=== PATIENT | female | born 1985 | race Caucasian/White ===

== ENCOUNTER 2017-10-07 13:01 | Emergency (ER) | payer OTHER ==
[~2017-10-07 13:01] MED LIST: SE-NTAB3 PO; TOPR25TA PO
--- NOTE | 2017-10-07 13:52 | PD ---
HPI Chief Complaint Decreased movement Date Seen: Oct 07, 2017 Time Seen: 13:49 Travel History International Travel<30 Days: No Contact w/Intl Traveler<30Days: No Known Affected Area: No History of Present Illness HPI 32-year-old at 35 weeks and 3 days complains of decreased movement this morning. Patient states that she has had an uncomplicated . At 32 weeks she measured size less than dates on physical exam and an ultrasound was ordered that noted normal growth. Patient sees Radha Pavon for her care but would like an lokie driver to take over her care if possible. She is a history of rapid labors in the past and does not believe that the birthing center in [place] is close enough for safety. Weeks Gestation: 35 Para: 3 : 5 History Past Medical History Medical History: Denies Significant Hx Obstetric History Obstetric History Spontaneous vaginal delivery 3 Past Surgical History Surgical History: No Previous Surgery Family History Family History: Negative Social History Alcohol Use: No Tobacco Use: No Substance Abuse: No Allergies-Medications (Allergen,Severity, Reaction): Coded Allergies: No Known Allergies (Unverified , 10/07/17) Home Meds Reported Medications Metoprolol Succinate ER 24 HR (Toprol XL) 25 Mg Tab, 12.5 MG PO DAILY, #30 TAB 0 Refills 08/31/17 Vit W/ Docusate-Fe Fu (Se-Deangelo 19 29-1 mg) 29 Mg Iron-1 Mg-25 Mg Tab, 1 TAB PO DAILY for Nutritional Supplement, TAB 0 Refills 08/31/17 Review of Systems Except as stated in HPI: all other systems reviewed are Neg Physical Exam Narrative GENERAL: Well-nourished, well-developed patient. SKIN: Warm and dry. HEAD: Normocephalic and atraumatic. EYES: No scleral icterus. No injection or drainage. ENT: No nasal drainage noted. Mucous membranes pink. Airway patent. NECK: Supple, trachea midline. No JVD. CARDIOVASCULAR: Regular rate and rhythm without murmurs, gallops, or rubs. RESPIRATORY: Breath sounds equal bilaterally. No accessory muscle use. ABDOMEN/GI: Abdomen soft, non-tender, bowel sounds present, no rebound, no guarding Gravid to [-] weeks size Fundal Height: [-] 33 GENITOURINARY: Deferred External Genitalia: intact and normal in appearance BUS glands: [-] Cervix: [-] Dilatation: [-] Effacement: [-] Station: [-] Presentation: [-] Membranes: [intact or ruptured] Uterine Contractions: [-] FHT's: Category: [-] 1 Baseline: [-] 140 Reactive: [-] Moderate Variability: [-] Moderate Decels: [-] Absent EXTREMITIES: No cyanosis or edema. BACK: Nontender without obvious deformity. No CVA tenderness. NEUROLOGICAL: Awake and alert. Motor and sensory grossly within normal limits. Five out of 5 muscle strength in all muscle groups. Normal speech. Data Data Vital Signs Reviewed: Yes [facility] Medical Record Reviewed: Yes Plan 32-year-old at 35 weeks in 3 days with decreased movement. Normal nonstress test is noted Patient was given information for the [place] [facility] Given her history of rapid labors would recommend a closer hospital for delivery Diagnosis Diagnosis: Primary Impression: 35 weeks gestation of Additional Impression: Decreased movement affecting management of in third trimester Disposition: 01 DISCHARGE HOME Tova Barbour MD Oct 07, 2017 13:52
== END 2017-10-07 14:37 | disposition home or self-care (01) ==
LOC: HOBED 13:01
DX: O36.8130 Decreased fetal movements, third trimester, not applicable or unspecified (principal); Z3A.35 35 weeks gestation of pregnancy
CPT/HCPCS: 59025

== ENCOUNTER 2017-10-19 08:39 | Emergency (ER) | payer OTHER ==
[2017-10-19 08:47] VITALS: BP 102/65; PULSE 67
[2017-10-19 08:54] VITALS: RESP 18; TEMP 97.5
--- NOTE | 2017-10-19 09:19 | PD ---
HPI Chief Complaint Possible leakage of fluid Date Seen: Oct 19, 2017 Time Seen: 09:00 Travel History International Travel<30 Days: No Contact w/Intl Traveler<30Days: No History of Present Illness HPI Mrs. Padilla is a 32-year-old at 37/1 weeks gestation presenting to the OB ED today due to concerns about possible leakage of fluids. She states that the leaking started last night around 8:30 PM after she urinated. She said it then stopped and around 4 AM started again. She then put on a panty liner. When she woke up this morning the panty liner was dry only had scant discharge. No vaginal bleeding, no contractions, no dysuria, no chest pain, no shortness of breath, no decreased movement. Weeks Gestation: 37 Para: 3 : 5 History Past Medical History Narrative Medical Anxiety Heart palpitations (arrhythmia) Obstetric History Obstetric History 2010, girl, , term, no complications 2012, boy, , term, no complications 2014, boy, , term, no complications 2015, spontaneous Past Surgical History Narrative Surgical Cleft palate reconstruction Family History Narrative Family History Father-hypertension Mother- healthy Social History Narrative Social History Lives with her and 3 kids Rcvp-[id number] mother Denies alcohol, tobacco, or illicit drug use Allergies-Medications (Allergen,Severity, Reaction): Coded Allergies: No Known Allergies (Unverified , 10/07/17) Home Meds Reported Medications Metoprolol Succinate ER 24 HR (Toprol XL) 25 Mg Tab, 12.5 MG PO DAILY, #30 TAB 0 Refills 08/31/17 Vit W/ Docusate-Fe Fu (Se- 19 29-1 mg) 29 Mg Iron-1 Mg-25 Mg Tab, 1 TAB PO DAILY for Nutritional Supplement, TAB 0 Refills 08/31/17 Review of Systems General / Constitutional: No: Fever, Chills Eyes: No: Blurred Vision HENT: No: Headaches Cardiovascular: No: Chest Pain or Discomfort Respiratory: No: Short of Breath Gastrointestinal: No: Nausea, Vomiting, Abdominal Pain Genitourinary: No: Dysuria Musculoskeletal: No: Weakness Skin: No Rash Neurologic: No: Syncope Psychiatric: Anxiety Physical Exam Vital Signs Date Time Temp Pulse Resp B/P (MAP) Pulse Ox O2 Delivery O2 Flow Rate FiO2 10/19/17 08:54 97.5 18 10/19/17 08:47 67 102/65 (77) Narrative GENERAL: Well-nourished, well-developed patient. SKIN: Warm and dry. HEAD: Normocephalic and atraumatic. EYES: No scleral icterus. No injection or drainage. ENT: No nasal drainage noted. Mucous membranes pink. Airway patent. NECK: Supple, trachea midline. No JVD. CARDIOVASCULAR: Regular rate and rhythm without murmurs, gallops, or rubs. RESPIRATORY: Breath sounds equal bilaterally. No accessory muscle use. BREASTS: Bilateral exam showed no masses , no retractions, no nipple discharge. ABDOMEN/GI: Abdomen soft, non-tender, bowel sounds present, no rebound, no guarding Gravid to [-] weeks size Fundal Height: [-] GENITOURINARY: External Genitalia: intact and normal in appearance Right labia major cyst, nontender, not infected Cervix: posterior Dilatation: 2 Effacement: 50 Station: -2 Presentation: vertex Membranes: intact Uterine Contractions: none FHT's: Category: 1 Baseline: 130s Reactive: yes Variability: moderate Decels: none EXTREMITIES: No cyanosis or edema. BACK: Nontender without obvious deformity. No CVA tenderness. NEUROLOGICAL: Awake and alert. Motor and sensory grossly within normal limits. Five out of 5 muscle strength in all muscle groups. Normal speech. Data Data Vital Signs Reviewed: Yes Orders Orders Vital Signs (Adult) .ON ADMISSION (10/19/17 08:46) ^ Labor Status (10/19/17 08:46) ^ Non Stress Test (10/19/17 08:46) Pamg-1 Test .ONCE (10/19/17 08:46) Group B Strep: Positive MDM Plan 32-year-old at 37/1 weeks gestation presenting due to concerns about possible rupture. Amnisure is negative Cervix is 2/50/-2 FHT is category 1, reassuring -Reassured patient SDW Dr. Anna Diagnosis Diagnosis: Primary Impression: 37 weeks gestation of Disposition: DISCHARGE HOME Condition: Stable Juliana Baires MD R1 Oct 19, 2017 09:19
== END 2017-10-19 09:48 | disposition home or self-care (01) ==
LOC: HOBED 08:39
DX: O26.93 Pregnancy related conditions, unspecified, third trimester (principal); Z3A.37 37 weeks gestation of pregnancy
CPT/HCPCS: 59025; 84112

== ENCOUNTER 2017-11-04 08:05 | Inpatient (IN) | payer MEDICAID, OTHER ==
[~2017-11-04] VITALS: Ht 160 cm; Wt 60.0 kg
[2017-11-04] VITALS (12 sets, daily range): BP systolic 104–129; BP diastolic 42–81; PULSE 68–108; RESP 16–20; TEMP 97.6–98.1; O2SAT 99
[2017-11-04] MEDS ORDERED: OXYTOCIN 30 UNITS-500ML PREMIX 500 ML ONE (08:18)
[2017-11-04] MEDS ORDERED: LIDOCAINE HCL 1% PF 30 ML VIAL ONE (08:18)
[2017-11-04] MEDS ORDERED: LACTATED RINGER'S 1000 ML INJ 1,000 ML IV SCH (09:01)
[2017-11-04] MEDS ORDERED: LACTATED RINGER'S 1000 ML INJ 1,000 ML IV PRN (09:01)
[2017-11-04 09:10] LABS: AUTOMATED NEUTROPHIL # 8.5 TH/MM3 (1.8-7.7); BASOPHIL % 0.3 % (0.0-2.0); EOSINOPHIL % 0.4 % (0.0-4.0); LYMPH % 18.7 % (9.0-44.0); LYMPHOCYTE # 2.2 TH/MM3 (1.0-4.8); MEAN CELL VOLUME 74.4 FL (80.0-100.0); MEAN CORPUSCULAR HEMOGLOBIN 24.8 PG (27.0-34.0); MEAN CORPUSCULAR HGB CONC 33.3 % (32.0-36.0); MEAN PLATELET VOLUME 8.7 FL (7.0-11.0); MONO % 7.2 % (0.0-8.0); MONOCYTE # 0.8 TH/MM3 (0-0.9); NEUT % 73.4 % (16.0-70.0); PLATELET COUNT 225 TH/MM3 (150-450); RED BLOOD COUNT 4.43 MIL/MM3 (4.00-5.30); RED CELL DISTRIBUTION WIDTH 14.1 % (11.6-17.2); WHITE BLOOD COUNT 11.5 TH/MM3 (4.0-11.0)
--- NOTE | 2017-11-04 09:11 | PD.OB.DELI ---
Weeks gestation: 39 Pt started active labor?: Yes Medical induction of labor?: No Artificial rupture of membrane: No Anesthesia: None Episiotomy: None Vaginal Delivery: Normal Presentation: Occiput posterior Nuchal Cord: None Delayed cord clamping (45 sec): Yes : Male Delivery date: Nov 04, 2017 Delivery time: 08:20 One Minute : 9 Five Minute : 9 Placenta: Spontaneous delivery Laceration: 2 deg Repair: Vicryl running Estimated blood loss: 200cc Chloe Ram MD Nov 04, 2017 09:11
[2017-11-04] MEDS ORDERED: WITCH HAZEL 50%/GLYCERIN 12.5% 40 PAD JAR TOPICAL PRN (09:15)
[2017-11-04] MEDS ORDERED: LIDOCAINE HCL 1% 50 ML VIAL INFIL PRN (09:15)
[2017-11-04] MEDS ORDERED: ACETAMINOPHEN 325 MG TAB PO PRN (09:15)
[2017-11-04] MEDS ORDERED: LIDOCAINE HCL 1% 50 ML VIAL I-DERMAL PRN (09:15)
[2017-11-04] MEDS ORDERED: SODIUM CHLORID 0.9% 500 ML INJ 500 ML IV PRN (09:15)
[2017-11-04] MEDS ORDERED: OXYTOCIN 30 UNITS-500ML PREMIX 500 ML IV ONE (09:15)
[2017-11-04] MEDS ORDERED: ONDANSETRON ODT 4 MG TAB PO PRN (09:15)
[2017-11-04] MEDS ORDERED: SODIUM CHLORIDE 0.9% FLUSH 10 ML FLUSH IV FLUSH PRN (09:15)
[2017-11-04] MEDS ORDERED: BENZOCAINE 20% TOPICAL SPRAY 60 ML CAN TOPICAL PRN (09:15)
[2017-11-04] MEDS ORDERED: CITRIC ACID-SODIUM CITRATE LIQ 30 ML UDC PO SCH (09:15)
[2017-11-04] MEDS ORDERED: OXYTOCIN 30 UNITS-500ML PREMIX 500 ML IV SCH (09:15)
[2017-11-04] MEDS ORDERED: DOCUSATE SODIUM 50 MG/SENNA 8.6 MG TAB PO PRN (09:15)
[2017-11-04] MEDS ORDERED: ALUMINUM/MAGNESIUM/SIMETH 30 ML CUP PO PRN (09:15)
[2017-11-04] MEDS ORDERED: MINERAL OIL 10 ML VIAL TOPICAL PRN (09:15)
--- NOTE | 2017-11-04 09:16 | HHI.HP ---
HPI Chief Complaint ctx Date Seen: Nov 04, 2017 Time Seen: 08:12 Travel History International Travel<30 Days: No Contact w/Intl Traveler<30Days: No Known Affected Area: No History of Present Illness HPI a 32y/o @ 39.3wks. She has PNC with Radha Pavon. She reports ctx started 2hrs ago and her water broke in the car. She is GBS+. Weeks Gestation: 39 Para: 3 : 5 History Past Medical History Narrative Medical palpitations Obstetric History Obstetric History SVDx3 SABx1 Past Surgical History Narrative Surgical cleft lip sx Family History Family History: Negative Social History Alcohol Use: No Tobacco Use: No Substance Abuse: No Allergies-Medications (Allergen,Severity, Reaction): Coded Allergies: No Known Allergies (Unverified , 10/07/17) Home Meds Reported Medications Metoprolol Succinate ER 24 HR (Toprol XL) 25 Mg Tab, 12.5 MG PO DAILY, #30 TAB 0 Refills 08/31/17 Vit W/ Docusate-Fe Fu (Se-Deangelo 19 29-1 mg) 29 Mg Iron-1 Mg-25 Mg Tab, 1 TAB PO DAILY for Nutritional Supplement, TAB 0 Refills 08/31/17 Review of Systems Except as stated in HPI: all other systems reviewed are Neg Physical Exam Vital Signs Date Time Temp Pulse Resp B/P (MAP) Pulse Ox O2 Delivery O2 Flow Rate FiO2 11/04/17 08:31 84 110/53 (72) Narrative General: well developed, well nourished, screaming HEENT: normocephalic atraumatic, extraocular movements intact, neck supple Abdomen: soft, gravid, nontender, nondistended Uterus: fundus term Extremities: full range of motion Skin: normal coloration, no rashes, no suspicious skin lesions noted Neurologic: cranial nerves 2-12 grossly intact, normal muscle tone, normal gait Psychiatric: normal mood and affect, appropriate FHTs: present Cvx: complete and Caprini VTE Risk Assessment Caprini VTE Risk Assessment: No/Low Risk (score <= 1) Caprini Risk Assessment Model Point Value = 1 Point Value = 2 Point Value = 3 Point Value = 5 Age 41-60 Minor surgery BMI > 25 kg/m2 Swollen legs Varicose veins or History of unexplained or recurrent spontaneous Oral contraceptives or hormone replacement Sepsis (< 1 month) Serious lung disease, including pneumonia (< 1 month) Abnormal pulmonary function Acute myocardial infarction Congestive heart failure (< 1 month) History of inflammatory bowel disease Medical patient at bed rest Age 61-74 Arthroscopic surgery Major open surgery (> 45 min) Laparoscopic surgery (> 45 min) Malignancy Confined to bed (> 72 hours) Immobilizing plaster cast Central venous access Age >= 75 History of VTE Family history of VTE Factor V Leiden Prothrombin [id number] Lupus anticoagulant Anticardiolipin antibodies Elevated serum homocysteine Heparin-induced thrombocytopenia Other congenital or acquired thrombophilia Stroke (< 1 month) Elective arthroplasty Hip, pelvis, or leg fracture Acute spinal cord injury (< 1 month) Prophylaxis Regimen Total Risk Factor Score Risk Level Prophylaxis Regimen 0-1 Low Early ambulation 2 Moderate Order ONE of the following: *Sequential Compression Device (SCD) *Heparin 5000 units SQ BID 3-4 Higher Order ONE of the following medications: *Heparin 5000 units SQ TID *Enoxaparin/Lovenox 40 mg SQ daily (WT < 150 kg, CrCl > 30 mL/min) *Enoxaparin/Lovenox 30 mg SQ daily (WT < 150 kg, CrCl > 10-29 mL/min) *Enoxaparin/Lovenox 30 mg SQ BID (WT < 150 kg, CrCl > 30 mL/min) AND/OR *Sequential Compression Device (SCD) 5 or more Highest Order ONE of the following medications: *Heparin 5000 units SQ TID (Preferred with Epidurals) *Enoxaparin/Lovenox 40 mg SQ daily (WT < 150 kg, CrCl > 30 mL/min) *Enoxaparin/Lovenox 30 mg SQ daily (WT < 150 kg, CrCl > 10-29 mL/min) *Enoxaparin/Lovenox 30 mg SQ BID (WT < 150 kg, CrCl > 30 mL/min) AND *Sequential Compression Device (SCD) Data Data Vital Signs Reviewed: Yes Orders Orders Ob (2e) Additional Admit Info (11/04/17 08:11) Lidocaine Pf 1% Inj (Xylocaine-Mpf 1% In (11/04/17 08:18) Oxytocin 30 Units-500ml Premix (Pitocin (11/04/17 08:18) Vital Signs (Adult) .Per protocol (11/04/17 08:34) Heart (11/04/17 08:34) Amnioinfusion (11/04/17 08:34) Urinary Catheter Management .ONCE (11/04/17 08:34) Complete Blood Count With Diff (11/04/17 08:34) Hold Clot (11/04/17 08:34) Abo/Rh Blood Type (11/04/17 08:34) Urinalysis - C+S If Indicated (11/04/17 08:34) Drug Screen, Random Urine (11/04/17 08:34) Ob/Psych Drug Screen, Urine (11/04/17 08:34) Resp Oxygen Non Rebreathe Mask (11/04/17 ) ^ Epidural / Intrathecal Infus (11/04/17 08:34) Specimen To Be Collected PRN (11/04/17 08:34) Specimen To Be Collected PRN (11/04/17 08:34) Admit To Inpatient (11/04/17 ) Vital Signs (Adult) .Per protocol (11/04/17 09:01) Heart (11/04/17 09:01) Amnioinfusion (11/04/17 09:01) Urinary Catheter Management .ONCE (11/04/17 09:01) Diet Liquid (11/04/17 Breakfast) Lactated Ringer's 1000 Ml Inj (Lr 1000 M (11/04/17 09:01) Lactated Ringer's 1000 Ml Inj (Lr 1000 M (11/04/17 09:01) Sodium Chlorid 0.9% 500 Ml Inj (Ns 500 M (11/04/17 09:15) Sodium Chlor 0.9% 1000 Ml Inj (Ns 1000 M (11/04/17 09:21) Lidocaine 1% Inj (50 Ml) (Xylocaine 1% I (11/04/17 09:15) Citric Acid-Sodium Citrate Liq (Bicitra (11/04/17 09:15) Fentanyl Inj (Fentanyl Inj) (11/04/17 09:15) Fentanyl Inj (Fentanyl Inj) (11/04/17 09:15) Drug Screen, Random Urine (11/04/17 09:01) Ob/Psych Drug Screen, Urine (11/04/17 09:01) Resp Oxygen Non Rebreathe Mask (11/04/17 ) ^ Epidural / Intrathecal Infus (11/04/17 09:01) Oxytocin 30 Units-500ml Premix (Pitocin (11/04/17 09:15) Lidocaine 1% Inj (50 Ml) (Xylocaine 1% I (11/04/17 09:15) Light Mineral Oil (Muri-Lube Oil) (11/04/17 09:15) Inpatient Certification (11/04/17 ) Specimen To Be Collected PRN (11/04/17 09:01) Vital Signs (Adult) .QSHIFT (11/04/17 09:01) Activity Oob Ad Tea (11/04/17 09:01) Ice / Cold Pack PRN (11/04/17 09:01) Discontinue Iv (11/04/17 09:) Sitz Bath PRN (11/04/17 09:) ^ Massage (11/04/17 09:01) ^ Rhogam (11/04/17 09:01) Urinary Catheter Management .PRN (11/04/17 09:01) Sodium Chloride 0.9% Flush (Ns Flush) (11/04/17 21:00) Sodium Chloride 0.9% Flush (Ns Flush) (11/04/17 09:15) Oxytocin 30 Units-500ml Premix (Pitocin (11/04/17 09:15) Acetaminophen (Tylenol) (11/04/17 09:15) Ibuprofen (Motrin) (11/04/17 09:15) Benzocaine 20% Top Spr (Americaine 20% T (11/04/17 09:15) Witch Vanda-Glycerin Pad (Tucks Pads) (11/04/17 09:15) Docusate Sodium-Senna (Kendra-Colace) (11/04/17 09:15) Zolpidem (Ambien) (11/04/17 09:15) Nancida-Efwkc-Jscknia Inj (M-M-R Ii Inj) (11/04/17 16:00) Vzsn-Bji-Gktbeb (Booster) Inj (Boostrix (11/04/17 16:00) Al-Mag Hy-Si 40-40-4 Mg/Ml Liq (Mag-Al P (11/04/17 09:15) Ondansetron Odt (Zofran Odt) (11/04/17 09:15) Group B Strep: Positive Labs Laboratory Tests Test 11/04/17 08:15 White Blood Count 11.5 Red Blood Count 4.43 Hemoglobin 11.0 Hematocrit 33.0 Mean Corpuscular Volume 74.4 Mean Corpuscular Hemoglobin 24.8 Mean Corpuscular Hemoglobin Concent 33.3 Red Cell Distribution Width 14.1 Platelet Count 225 Mean Platelet Volume 8.7 Neutrophils (%) (Auto) 73.4 Lymphocytes (%) (Auto) 18.7 Monocytes (%) (Auto) 7.2 Eosinophils (%) (Auto) 0.4 Basophils (%) (Auto) 0.3 Neutrophils # (Auto) 8.5 Lymphocytes # (Auto) 2.2 Monocytes # (Auto) 0.8 Eosinophils # (Auto) 0.0 Basophils # (Auto) 0.0 CBC Comment DIFF FINAL Differential Comment Assessment/Plan Problem List: (1) 39 weeks gestation of ICD Codes: Z3A.39 - 39 weeks gestation of (2) Uterine contractions during ICD Codes: O62.2 - Other uterine inertia (3) GBS (group B Streptococcus carrier), +RV culture, currently ICD Codes: O99.820 - Streptococcus B carrier state complicating Assessment and Plan 32y/o @ 39.3wks complete and . -- admit to L&D -- routine labs -- precipitous delivery Chloe Ram MD Nov 04, 2017 09:16
[2017-11-04] MEDS ORDERED: SODIUM CHLOR 0.9% 1000 ML INJ 1,000 ML IV PRN (09:21)
[2017-11-04] MEDS: IBUPROFEN 800 MG TAB PO PRN ×2 (09:52→19:15)
[2017-11-04] MEDS ORDERED: MEASLES, MUMPS, RUBELLA VACCINE 0.5 ML VIAL SQ ONE (16:00)
[2017-11-04] MEDS ORDERED: DIPHTH/TETANUS/ACEL PERTUSSIS (BOOSTER) 0.5 ML VIAL/PFS IM ONE (16:00)
[2017-11-04 16:07] LABS: AMORPHOUS SEDIMENT, URINE RARE; BILIRUBIN, URINE NEG (NEG); BLOOD, URINE LARGE (NEG); GLUCOSE,URINE NEG (NEG); KETONE, URINE 40 mg/dL (NEG); MUCUS URINE MOD /lpf (OCC); NITRITE,URINE NEG (NEG); PH, URINE 6.5 (5.0-8.5); URINE COLOR LIGHT-RED (YELLW/STRAW); URINE LEUKOCYTE ESTERASE SMALL (NEG)
[2017-11-04] MEDS ORDERED: ZOLPIDEM TARTRATE 5 MG TAB PO PRN (21:00)
[2017-11-04] MEDS ORDERED: SODIUM CHLORIDE 0.9% FLUSH 10 ML FLUSH IV FLUSH SCH (21:00)
[2017-11-05 08:00] VITALS: BP 107/71; PULSE 94; RESP 18; TEMP 98.4
[2017-11-05] MEDS: IBUPROFEN 800 MG TAB PO PRN (08:43)
--- NOTE | 2017-11-05 09:21 | HHI.OB ---
Subjective Post Day: 1 Remarks Pt seen and examined this morning. day # 1 AFVSS overnight. Decreased lochia. Denies dysuria. No breast tenderness. She is feeding the baby via breast. Appetite good. No nausea or vomiting. Patient has not yet had a bowel movement, but continues to pass bowel gas. Ambulating well. Denies calf pain or shortness of breath. Otherwise her only complaint is a mild headache that recently started. Patient has not had her ibuprofen this morning, will continue to monitor after being medicated. Otherwise she denies a complete review of systems including but not limited to any fevers, chills, shortness of breath, chest pain, NVD, abdominal pain, or calf tenderness. Objective Vitals/I&O Vital Signs Date Time Temp Pulse Resp B/P (MAP) Pulse Ox O2 Delivery O2 Flow Rate FiO2 11/04/17 21:02 98.1 79 18 108/75 (86) 11/04/17 10:10 108 119/67 (84) 11/04/17 10:10 97.6 20 99 11/04/17 09:45 68 113/74 (87) 11/04/17 09:30 80 106/69 (81) 11/04/17 09:25 97.6 16 Objective Remarks GENERAL: Well-nourished, well-developed patient. CARDIOVASCULAR: Regular rate and rhythm without murmurs, gallops, or rubs. RESPIRATORY: Breath sounds equal bilaterally. No accessory muscle use. ABDOMEN/GI: Abdomen soft, non-tender. Fundus: Firm, non-tender at umbilicus. GENITOURINARY: Light to moderate bleeding. EXTREMITIES: No cyanosis or edema, non-tender, without signs of DVT. Medications and IVs Current Medications Medications (Trade) Dose Ordered Sig/Modesta Route Start Time Stop Time Status Last Admin Lactated Ringer's 1,000 ml @ 125 mls/hr Q8H IV 11/04/17 09:01 11/04/17 09:15 Lactated Ringer's 1,000 ml @ 3,000 mls/hr Q20M PRN IV 11/04/17 09:01 Sodium Chloride 1,000 ml @ 100 mls/hr Q10H PRN IV 11/04/17 09:21 (Xylocaine 1% Inj (50 ml)) 0.1 ml UNSCH X1 PRN I-DERMAL 11/04/17 09:15 11/07/17 09:14 (Bicitra Liq) 30 ml NURSING ASSOCIATE PO 11/04/17 09:15 11/08/17 09:14 (fentaNYL INJ) 50 mcg Q1H PRN IV PUSH 11/04/17 09:15 (fentaNYL INJ) 100 mcg Q1H PRN IV PUSH 11/04/17 09:15 (Xylocaine 1% Inj (50 ml)) 10 ml UNSCH X1 PRN INFIL 11/04/17 09:15 11/06/17 09:14 11/04/17 09:15 (Muri-Lube Oil) 10 ml UNSCH PRN TOPICAL 11/04/17 09:15 (NS Flush) 2 ml BID IV FLUSH 11/04/17 21:00 (NS Flush) 2 ml UNSCH PRN IV FLUSH 11/04/17 09:15 (Tylenol) 650 mg Q4H PRN PO 11/04/17 09:15 (Motrin) 800 mg Q8H PRN PO 11/04/17 09:15 11/05/17 08:43 (Americaine 20% Top Spr) 1 spray Q4H PRN TOPICAL 11/04/17 09:15 11/04/17 19:15 (Tucks Pads) 1 applic QID PRN TOPICAL 11/04/17 09:15 11/04/17 19:15 (Kendra-Colace) 2 tab Q12H PRN PO 11/04/17 09:15 11/04/17 19:15 (Ambien) 5 mg HS PRN PO 11/04/17 21:00 (Mag-Al Plus Susp Liq) 15 ml Q8H PRN PO 11/04/17 09:15 (Zofran Odt) 4 mg Q6H PRN PO 11/04/17 09:15 Assessment/Plan Problem List: (1) 39 weeks gestation of ICD Codes: Z3A.39 - 39 weeks gestation of (2) Uterine contractions during ICD Codes: O62.2 - Other uterine inertia (3) GBS (group B Streptococcus carrier), +RV culture, currently ICD Codes: O99.820 - Streptococcus B carrier state complicating (4) (spontaneous vaginal delivery) ICD Codes: O80 - Encounter for full-term uncomplicated delivery Assessment and Plan 32y/o female who is day # 1 s/p . -Continue routine care. -Motrin PRN pain. -Encouraged OOB. Advised pelvic rest for 6 wks. -Re: ctrl, she would like to discuss her options at her follow-up OB appointment. -Anticipate discharge tomorrow with baby. MD Russell Betts Dr., Ryan H MD R2 Nov 05, 2017 09:21
[2017-11-06] MEDS ORDERED: IBUP1TAB7 PO (07:32)
[2017-11-06] MEDS ORDERED: ACET325T15 PO (07:32)
--- NOTE | 2017-11-06 07:33 | HHI.DCPOC ---
Discharge Care Plan Diagnosis: (1) 39 weeks gestation of (2) (spontaneous vaginal delivery) Report Symptoms to Your Doctor -Temperature above 100.5 degrees -Redness, of incision or excessive or foul smelling drainage -Unusual pain or calf pain -Increased vaginal bleeding -Painful or difficulty urinating -Feelings of extreme sadness or anxiety after 2 weeks Goals to Promote Your Health * To prevent worsening of your condition and complications * To maintain your health at the optimal level Directions to Meet Your Goals Take your medications as prescribed Follow your dietary instruction Follow activity as directed Ensure plenty of rest for recovery Drink fluids for hydration Keep your appointments as scheduled Take your immunizations and boosters as scheduled If your symptoms worsen call your PCP, if no PCP go to Urgent Care Center or Emergency Room Smoking is Dangerous to Your Health. Avoid second hand smoke Call the 24-hour crisis hotline for domestic abuse at Kamilla Quiñones MD Nov 06, 2017 07:33
--- NOTE | 2017-11-06 07:37 | HHI.OB ---
Subjective Post Day: 2 Remarks day # 2. AFVSS overnight. Decreased lochia. Denies dysuria. No breast tenderness. She is feeding the baby via breast. Appetite good. No nausea or vomiting. Patient has had BM. Ambulating well. Denies calf pain or shortness of breath. Otherwise, she is doing well this morning and has no other concerns. Objective Vitals/I&O Vital Signs Date Time Temp Pulse Resp B/P (MAP) Pulse Ox O2 Delivery O2 Flow Rate FiO2 11/05/17 08:00 98.4 94 18 107/71 (83) Objective Remarks GENERAL: Well-nourished, well-developed patient. CARDIOVASCULAR: Regular rate and rhythm without murmurs, gallops, or rubs. RESPIRATORY: Breath sounds equal bilaterally. No accessory muscle use. ABDOMEN/GI: Abdomen soft, non-tender. Fundus: Firm, non-tender at umbilicus. GENITOURINARY: Light to moderate bleeding. EXTREMITIES: No cyanosis or edema, non-tender, without signs of DVT. Medications and IVs Current Medications Medications (Trade) Dose Ordered Sig/Modesta Route Start Time Stop Time Status Last Admin Lactated Ringer's 1,000 ml @ 125 mls/hr Q8H IV 11/04/17 09:01 11/04/17 09:15 Lactated Ringer's 1,000 ml @ 3,000 mls/hr Q20M PRN IV 11/04/17 09:01 Sodium Chloride 1,000 ml @ 100 mls/hr Q10H PRN IV 11/04/17 09:21 (Xylocaine 1% Inj (50 ml)) 0.1 ml UNSCH X1 PRN I-DERMAL 11/04/17 09:15 11/07/17 09:14 (Bicitra Liq) 30 ml MIXING ROLL OPERATOR PO 11/04/17 09:15 11/08/17 09:14 (fentaNYL INJ) 50 mcg Q1H PRN IV PUSH 11/04/17 09:15 (fentaNYL INJ) 100 mcg Q1H PRN IV PUSH 11/04/17 09:15 (Xylocaine 1% Inj (50 ml)) 10 ml UNSCH X1 PRN INFIL 11/04/17 09:15 11/06/17 09:14 11/04/17 09:15 (Muri-Lube Oil) 10 ml UNSCH PRN TOPICAL 11/04/17 09:15 (NS Flush) 2 ml BID IV FLUSH 11/04/17 21:00 (NS Flush) 2 ml UNSCH PRN IV FLUSH 11/04/17 09:15 (Tylenol) 650 mg Q4H PRN PO 11/04/17 09:15 11/05/17 17:55 (Motrin) 800 mg Q8H PRN PO 11/04/17 09:15 11/05/17 08:43 (Americaine 20% Top Spr) 1 spray Q4H PRN TOPICAL 11/04/17 09:15 11/04/17 19:15 (Tucks Pads) 1 applic QID PRN TOPICAL 11/04/17 09:15 11/04/17 19:15 (Kendra-Colace) 2 tab Q12H PRN PO 11/04/17 09:15 11/04/17 19:15 (Ambien) 5 mg HS PRN PO 11/04/17 21:00 (Mag-Al Plus Susp Liq) 15 ml Q8H PRN PO 11/04/17 09:15 (Zofran Odt) 4 mg Q6H PRN PO 11/04/17 09:15 Assessment/Plan Problem List: (1) 39 weeks gestation of ICD Codes: Z3A.39 - 39 weeks gestation of (2) Uterine contractions during ICD Codes: O62.2 - Other uterine inertia (3) GBS (group B Streptococcus carrier), +RV culture, currently ICD Codes: O99.820 - Streptococcus B carrier state complicating (4) (spontaneous vaginal delivery) ICD Codes: O80 - Encounter for full-term uncomplicated delivery Assessment and Plan 32y/o female who is day # 2 s/p . -Continue routine care. -Motrin PRN pain. -Encouraged OOB. Advised pelvic rest for 6 wks. -Re: ctrl, she would like to continue to rhythm planning -Anticipate discharge today with baby dw Dr. Milton Quiñones,Kamilla Gonsales MD Nov 06, 2017 07:37
[2017-11-06 07:55] VITALS: BP 103/63; PULSE 74; RESP 16; TEMP 98.1
== END 2017-11-06 12:20 | disposition home or self-care (01) | DRG 774 ==
LOC: HOBED 08:05 → H2EA 08:12 → H1EA 10:17
PROVIDERS: ADMIT Obstetrics & Gynecology; ATTEND Obstetrics & Gynecology
PROC: 10E0XZZ Delivery of Products of Conception, External Approach (ICD-10-PCS; principal; 2017-11-04)
PROC: 0KQM0ZZ Repair Perineum Muscle, Open Approach (ICD-10-PCS; 2017-11-04)
DX: O99.824 Streptococcus B carrier state complicating childbirth (principal); O90.89 Other complications of the puerperium, not elsewhere classified; R51 Headache; O62.3 Precipitate labor; O70.1 Second degree perineal laceration during delivery; Z3A.39 39 weeks gestation of pregnancy; Z37.0 Single live birth
CPT/HCPCS: 80307; 81001; 85025; 85461; 86850; 86900; 86901; 87086; 90384; 90715; 96365; G0481; J2590; J2790; J7120